=== PATIENT | female | born 1975 | race Caucasian/White ===

== ENCOUNTER → 2017-11-09 16:27 | Outpatient (CLI) | payer BC, MEDICAID, SELFPAY ==
[2017-11-13 11:20] LABS: HPV Reflexed? NOT INDICATED
== END ==
PROVIDERS: Family Provider Family Medicine; PCP Family Medicine; Visit Provider Obstetrics & Gynecology
DX: Z12.4 Encounter for screening for malignant neoplasm of cervix (principal)
CPT/HCPCS: 88175; G0145

== ENCOUNTER 2021-09-25 13:44 | Outpatient (CLI) | payer BC, SELFPAY | END 2021-09-25 23:59 | disposition short-term general hospital (02) | PROVIDERS: Referring Provider Physician Assistant; Visit Provider Physician Assistant | DX: Z11.52 Encounter for screening for COVID-19 (principal) | CPT/HCPCS: 87635; U0003; U0005 ==

== ENCOUNTER 2023-10-09 08:09 | Day surgery (SDC) | payer BC, SELFPAY ==
[2023-09-16 10:53] LABS: Hematocrit 40.9 % (37-47); Hemoglobin 13.7 g/dL (12.0-15.0); Mean Corp Hgb Conc 33.5 g/dL (32-36); Mean Corpuscular Hgb 28.7 pg (27.0-32.0); Mean Corpuscular Volume 85.6 fL (81-99); Mean Platelet Vol. 10.5 fl (6.2-12.0); Platelet Count 269 K/mm3 (150-450); RBC Distribution Width CV 12.6 % (11.6-14.6); RBC Distribution Width SD 39.3 fl (35.1-43.9); Red Blood Count 4.78 M/mm3 (4.2-5.4); White Blood Count 5.9 K/mm3 (4.4-11.0)
[2023-09-16 11:11] LABS: Amphetamine Urine VISTA NEGATIVE (<1000 ng/mL); Barbiturate Urine VISTA NEGATIVE (< 200 ng/mL); Benzodiazepine Urine VISTA NEGATIVE (< 200 ng/mL); Cocaine Urine VISTA NEGATIVE (< 300 ng/mL); Ecstacy Urine VISTA NEGATIVE (< 500 ng/mL); Methadone Urine VISTA NEGATIVE (< 300 ng/mL); PCP Urine VISTA NEGATIVE (< 25 ng/mL); THC Urine VISTA NEGATIVE (< 50 ng/mL); Vista UDS pH Range 7
[2023-09-16 11:40] LABS: Anion Gap 4 (5-15); BUN 10 mg/dL (7-18); BUN/Creat Ratio 13.4 RATIO (10-20); Calcium,Total 9.3 mg/dL (8.5-10.1); Chloride 107 mmol/L (98-107); Creatinine, Serum 0.75 mg/dL (0.55-1.02); EST Glomerular Filtration Rate 88 mL/min (>60); Est Glom Filt Rate - Afr Amer 106 mL/min (>60); Glucose 84 mg/dL (74-106); Potassium 3.8 mmol/L (3.5-5.1); Sodium Level 138 mmol/L (136-145)
[2023-09-16 17:00] LABS: COTININE Drug Screen Negative (<200 ng/mL)
[2023-10-09] VITALS (9 sets, daily range): BP systolic 93–136; BP diastolic 61–86; PULSE 69–93; RESP 16–71; TEMP 36.4–37.3; O2SAT 93–100; BMI 24.1
--- NOTE | 2023-10-09 | MAM_PTH ---
PATHOLOGY RESULTS PATIENT: CATHY BERGER [place] [facility] [place][id number] AGE/SX: 48/F ROOM: RE10/09/[address]: Dr. Socorro Chery MD : 1975 BED: DIS: 10/09/2023 SPEC #: [id number] RECD: 10/09/23 17:00 STATUS: LLUVIA STAR #: [id number] RAFAL: 10/09/23 00:[address]: Socorro Chery DEPT: SURGICAL PATHOLOGY RECD BY: Alcon Joyner ENTERED: 10/12/23 09:38 SP TYPE: MAMOPLASTY OTHR DR: Dr. Nolberto Ortega MD Tissues: Right breast, NOS Left breast, NOS Procedures: Surgery Specimen Level IV HEADER OPERATION: Bilateral breast reduction PRE-OP DIAGNOSIS: Breast hypertrophy, chronic neck and back pain TISSUE SUBMITTED: A - Left breast tissue (160 gm), B - Right breast tissue (168 gm) MICROSCOPIC DIAGNOSIS A. Left breast tissue, breast reduction mammoplasty: Fragments of benign breast tissue with focal minimal fibrocystic changes (160 gm). Skin, no pathologic diagnosis. B. Right breast tissue, breast reduction mammoplasty: Fragments of benign breast tissue with focal minimal fibrocystic changes (168 gm). Skin, no pathologic diagnosis. KYLEE:paulo 10/13/2023 MICROSCOPIC DESCRIPTION Slides are reviewed. GROSS DESCRIPTION A - Received in fixative is one container labeled with the patient's name and designated left breast tissue. The specimen consists of multiple pieces of fibroadipose tissue with a few of the pieces showing saleem-light brown skin measuring in aggregate 14.0 x 13.0 x 2.5 cm (weight in OR 160 gm). No skin lesion is identified. Sections reveal yellow adipose cut surfaces mixed with scant fibrous areas. No mass lesion is identified. Cook Starch sections are submitted in six cassettes. Cassette 1 contains the skin piece. B - Received in fixative is one container labeled with the patient's name and designated right breast tissue. The specimen consists of multiple pieces of fibroadipose tissue with a few of the pieces showing saleem-light brown skin measuring in aggregate 12.0 x 12.0 x 4.0 cm (weight in OR 168 gm). No skin lesion is identified. Sections reveal yellow adipose cut surfaces mixed with scant fibrous areas. No mass lesion is identified. Cook Starch sections are submitted in six cassettes. Cassette 1 contains the skin piece. / KYLEE:paulo 10/12/2023 TC:5 CPT: 05195 x2
[2023-10-09] MEDS: Lactated Ringers 1,000 ML 15 ML IV (08:52)
--- NOTE | 2023-10-09 09:17 | PCM.HP.BLA ---
History and Physical Date of Admission: 10/09/23 The patient is examined and there are no changes to the H&P dated 09/17/2023. She presents with bilateral mammary hypertrophy causing neck and back pain. The procedure breast reduction been thoroughly reviewed with the patient including the risk and complications of surgery. She is marked in the preop holding area prior to surgery. Assessment & Plan Assessment/Plan (1) Breast hypertrophy: (2) Chronic back pain: (3) Chronic neck pain: PLAN: Plan Patient for bilateral breast reduction.
[2023-10-09] MEDS: Cefazolin 2 GM in 0.9% Normal Saline (100mL Bag) 100 ML IV (09:50)
[2023-10-09] MEDS: Gentamicin 80 MG/2 ML Vial (10:19)
[2023-10-09] MEDS: Methylene Blue 1% 100 MG/10 ML VIAL ×2 (10:19)
[2023-10-09] MEDS: Bupivacaine 0.25% 30 ML Vial (14:05)
--- NOTE | 2023-10-09 14:20 | DCINST_ITS ---
Discharge Instructions Dressing / Incision Additional Dressing/Incision Instructions:: Keep your back elevated (recliner position) to reduce swelling and bruising. Follow the instructions given in the office. Follow Up Care Please Follow Up With: Socorro Chery MD When: in 1 week Test Results: Test results from this visit will be discussed in further detail at your follow- up appointment, if applicable. Discharge Plan Admission Attending Provider: Socorro Chery Primary Care Provider: Nolberto Ortega Discharge Orders/Prescriptions Prescriptions: No Action cephalexin 500 mg capsule 500 mg PO BID Qty: 14 0RF Referrals / Follow Up: Nolberto Ortega MD [Primary Care Provider] - Disposition Disposition (needs filled in before D/C Order can be placed): Home, Self Care
--- NOTE | 2023-10-09 14:22 | OP.PCM_ITS ---
Problems Associated Problem List Diagnoses (1) Breast hypertrophy: (2) Chronic back pain: (3) History of migraine headaches: Report of Operation Date of Procedure: 10/09/23 Pre-Operative Diagnosis: Bilateral mammary hypertrophy, neck and back pain Post-Operative Diagnosis: Same Surgery/Procedure Performed:: Bilateral breast reduction (left?160 g; right?168 g) Surgeon: Socorro Chery mathematical technician: KYE KINGkey account executive Type of Anesthesia: General Specimen's removed: Bilateral breast tissue Drains: None Estimated Blood Loss (mL): 50 cc Description of Procedure: The patient presents for bilateral breast reduction. The procedure been [facility] reviewed with the patient including the expected pre-, intra-, postoperative course. Surgical preparation also included informed consent reviewed the potential risk and complications which include but are not exclusive of bleeding, infection, pain, numbness, asymmetry, scar tissue, skin necrosis, the need for further surgery, DVT, and even . She is marked in the preop holding area prior to surgery. She is marked in the preop holding area prior to surgery. The patient was brought to the operating room and placed under general anesthesia in the supine position. Care is taken to pad all pressure points, apply sequential compression stockings, a Sow catheter, and a warming blanket. The breast and chest are prepped and draped in the usual sterile fashion. I initially began with incising all the premarked incisions. The pedicle was then de-epithelialized. The medial and lateral inferior aspects of the breast removed using argon coagulation. The pedicle was then from the upper flap and dissection continued cephalad maintaining the upper flap at least 2 cm in thickness. The pedicle was then trimmed in order to allow to comfortably fit beneath the upper flap. The wound is irrigated with antibiotic solution and checked for hemostasis which is controlled with cautery. The breast is then infolded and tacked together using silk suture and skin clips. When a satisfactory size and shape is noted, would begin wound closure. Initially a few Vicryl sutures were used in the subcutaneous tissue and dermis. The wound is then closed in 3 layers using a running strata fix suture. Approximately 4 cm above the inframammary crease, the nipple areola is brought out through an opening. It is tacked in place with a nylon suture. All skin edges were then approximated with a running subcuticular strata fix suture. The identical procedure was performed on the opposite side. The wounds are dressed with Xeroform, fluff gauze, and a surgery bra. She was taken to the recovery room in an awakening in stable condition. Needle and sponge counts are correct. Complications None Admit VTE Documentation VTE Mechan Device Prophylaxis: SCD's
[2023-10-09] MEDS: Oxycodone/Apap 5/325 Tablet PO (16:23)
== END 2023-10-09 17:09 | disposition home or self-care (01) ==
LOC: SDC 08:09 → AC 08:10
PROVIDERS: PCP Family Medicine; Referring Provider Plastic Surgery; Visit Provider Plastic Surgery
PROC: 0H0U0ZZ Alteration of Left Breast, Open Approach (ICD-10-PCS; CPT 19318; principal; 2023-10-09 09:10)
DX: N62 Hypertrophy of breast (principal); N64.81 Ptosis of breast; N64.59 Other signs and symptoms in breast; M54.2 Cervicalgia; M54.9 Dorsalgia, unspecified; G89.29 Other chronic pain
CPT/HCPCS: 19318; 36415; 80048; 80307; 85027; 88305; J7120; J2405